=== PATIENT | male | born 1975 | race Caucasian/White ===

== ENCOUNTER 2016-12-25 10:11 | Emergency (ER) | payer BC, MEDICAID ==
[2016-12-25] MEDS ORDERED: Meclizine HCl 25 MG TAB ONE ×2 (11:16→11:28)
[2016-12-25] MEDS ORDERED: SODIUM CHLORIDE 0.9% 0 ML ONE (11:16)
[2016-12-25] MEDS ORDERED: SODIUM CHLORIDE 0.9% 1,000 ML ONE (11:28)
== END 2016-12-25 13:02 | disposition home or self-care (01) ==
LOC: ER 10:11
DX: H66.001 Acute suppurative otitis media without spontaneous rupture of ear drum, right ear (principal); H81.11 Benign paroxysmal vertigo, right ear; J01.20 Acute ethmoidal sinusitis, unspecified; Z79.899 Other long term (current) drug therapy
CPT/HCPCS: 36415; 70450; 71010; 80053; 80307; 81003; 82553; 83735; 84439; 84443; 84484; 85025; 85610; 85730; 93005; 96360